=== PATIENT | female | born 1995 | race Caucasian/White ===

== ENCOUNTER 2019-05-21 15:38 | Emergency (ER) | payer MEDICAID ==
[2019-05-21 16:20] VITALS: BP 139/75; PULSE 91
--- NOTE | 2019-05-21 17:16 | EDM.PDOC ---
ED HPI GENERAL MEDICAL PROBLEM - General Chief Complaint: Skin Complaint Stated Complaint: L INDEX FINGER. POSSIBLE INFECTION Time Seen by Provider: 05/21/19 17:11 Source of Information: Reports: Patient History Limitations: Reports: No Limitations - History of Present Illness INITIAL COMMENTS - FREE TEXT/NARRATIVE: Patient is a 24-year-old female who is complaining of having pain and swelling to the distal tip of her index finger on the left hand. This is been going on for several days. She states there is been no injury or foreign body to the area. She has had a similar problem years ago on her right thumb. She does not work in a nursery or with farm animals. She denies any lymphangitis. Using hot compresses on this. Attempted to apply pressure to see if she can get a discharge from the finger. She has been unsuccessful with this. Duration: Week(s): (1) Location: Reports: Upper Extremity, Left Quality: Reports: Throbbing Severity: Mild Improves with: Reports: None Worsens with: Reports: None Associated Symptoms: Reports: No Other Symptoms left first finger Pain Score (Numeric/FACES): 8 - Related Data Allergies Allergy/AdvReac Type Severity Reaction Status Date / Time No Known Allergies Allergy Verified 05/21/19 16:20 Home Meds: Home Meds Sertraline [Zoloft] 50 mg PO DAILY 05/21/19 [History] Past Medical History - Past Health History Medical/Surgical History: Denies Medical/Surgical History Social & Family History - Family History Family Medical History: Noncontributory - Tobacco Use Smoking Status *Q: Current Every Day Smoker Years of Tobacco use: 11 Packs/Tins Daily: 0.5 - Recreational Drug Use Recreational Drug Use: No ED ROS GENERAL - Review of Systems Review Of Systems: Comprehensive ROS is negative, except as noted in HPI. ED EXAM, SKIN/RASH Exam: See Below Exam Limited By: No Limitations General Appearance: Alert, No Apparent Distress Head: Atraumatic, Normocephalic Neck: Normal Inspection Respiratory/Chest: No Respiratory Distress Neurological: Alert, Oriented Psychiatric: Normal Affect Skin: Warm, Dry, Erythema, Increased Warmth Location, Skin: Upper Extremity, Left Associated features: Warmth, Tenderness, Swelling Lymphatic: No Adenopathy Course - Vital Signs Last Recorded V/S: Last Vital Signs Temp 37.5 C 05/21/19 16:17 Pulse 91 05/21/19 16:17 Resp 18 05/21/19 16:17 BP 139/75 05/21/19 16:17 Pulse Ox 98 05/21/19 16:17 - Re-Assessments/Exams Free Text/Narrative Re-Assessment/Exam: 05/21/19 17:17 Patient's left index finger looks like it could be an early felon. Swelling is mild I will treat with antibiotic coverage and warm compresses. I will start her on clindamycin. Patient's instructed to return to ER if worse or not improving at that time we will most likely drain it with scalpel incision. Normal and ibuprofen as needed for pain. Departure - Departure Time of Disposition: 17:18 Disposition: Home, Self-Care 01 Clinical Impression: Felon of finger - Discharge Information Instructions: Cellulitis, Adult, [id number] Referrals: PCP,None [Primary Care Provider] - Additional Instructions: Clindamycin as prescribed. Tylenol and ibuprofen as needed. Warm soaks 4 times a day. Return to ER if not improving or worse. See PCP if not improving. The following information is given to patients seen in the emergency department who are being discharged to home. This information is to outline your options for follow-up care. We provide all patients seen in our emergency department with a follow-up referral. The need for follow-up, as well as the timing and circumstances, are variable depending upon the specifics of your emergency department visit. If you don't have a primary care physician on staff, we will provide you with a referral. We always advise you to contact your personal physician following an emergency department visit to inform them of the circumstance of the visit and for follow-up with them and/or the need for any referrals to a consulting specialist. The emergency department will also refer you to a specialist when appropriate. This referral assures that you have the opportunity for follow-up care with a specialist. All of these measure are taken in an effort to provide you with optimal care, which includes your follow-up. Under all circumstances we always encourage you to contact your private physician who remains a resource for coordinating your care. When calling for follow-up care, please make the office aware that this follow-up is from your recent emergency room visit. If for any reason you are refused follow-up, please contact the [facility] Emergency Department at and asked to speak to the emergency department charge nurse. Sepsis Event Note - Evaluation Sepsis Screening Result: No Definite Risk - Focused Exam Vital Signs: Vital Signs Temp Pulse Resp BP Pulse Ox 05/21/19 16:17 37.5 C 91 18 139/75 98 Date Exam was Performed: 05/21/19 Time Exam was Performed: 17:11
== END 2019-05-21 17:25 | disposition home or self-care (01) ==
LOC: MW.ED 15:38
DX: L03.012 Cellulitis of left finger (principal); F17.210 Nicotine dependence, cigarettes, uncomplicated
CPT/HCPCS: 99282; 99283

== ENCOUNTER 2019-06-17 07:16 | Emergency (ER) | payer OTHER ==
--- NOTE | 2019-06-17 07:21 | EDM.PDOC ---
<Jennifer Buckley - Last Filed: 06/17/19 10:11> ED HPI GENERAL MEDICAL PROBLEM - General Chief Complaint: Respiratory Problem Stated Complaint: SHORTNESS OF BREATH Time Seen by Provider: 06/17/19 07:19 Source of Information: Reports: Patient History Limitations: Reports: No Limitations - History of Present Illness INITIAL COMMENTS - FREE TEXT/NARRATIVE: HISTORY OF PRESENT ILLNESS: Patient is a 24-year-old female who reports 3-day history of tactile fever, nonproductive cough, generalized body aches and nasal congestion. She denies any neck stiffness or rash. No chest pain. Has occasional wheezing and mild dyspnea. Has a history of smoking but denies any history of asthma. No hemoptysis. No abdominal pain, vomiting or diarrhea. No urinary symptoms. Has tried using a family members inhaler with some relief. REVIEW OF SYSTEMS: Other than the symptoms associated with the present events, the following is reported with regard to recent health: General: (+) fever. HENT: (+) congestion. Respiratory: (+) cough. Cardiovascular: (-) chest pain. GI: (-) abdominal pain. : (-) urinary complaints. Musculoskeletal: (+) generalized myalgias Endocrine: (+) generalized fatigue Neurological: (-) localized weakness. Skin: (-) rash PAST MEDICAL HISTORY: reviewed as per nursing notes SOCIAL HISTORY: reviewed as per nursing notes, MEDICATIONS: Per nurse's note ALLERGIES: Per nurse's note, reviewed by me PHYSICAL EXAMINATION: GENERALIZED APPEARANCE: well developed, well nourished in mild distress VITAL SIGNS: Per nurse's note, reviewed by me SKIN: Warm, dry; (-) cyanosis; (-) rash. HEAD: (-) scalp swelling, (-) tenderness. EYES: (-) conjunctival pallor, (-) scleral icterus. ENMT: (-) stridor; mucous membranes moist. NECK: (-) tenderness, (-) stiffness, (-) meningismus CHEST AND RESPIRATORY: (-) rales, (-) rhonchi, (+)bilateral expiratory wheezes ; breath sounds equal bilaterally. occasional dry cough HEART AND CARDIOVASCULAR: (-) irregularity; (-) murmur, (-) gallop. ABDOMEN AND GI: Soft; (-) tenderness, (-) guarding, (-) rebound, (-) palpable masses, EXTREMITIES: (-) deformity, (-) edema. NEURO AND PSYCH: Alert. Cranial nerves grossly intact; strength symmetric. gait steady DIAGNOSTICS: CXR: as per radiologist report, reviewed by myself Influenza ordered EMERGENCY DEPARTMENT COURSE AND TREATMENT: Patient's condition improved during Emergency Department evaluation. Based on my history, physical exam, and diagnostic evaluation, the patient has symptoms consistent with an acute bronchitis.Given duoneb for wheezing. On re-exam there was a normal respiratory pattern and lung gomes were clear on repeat auscultation. The patient appeared to be in no distress, appeared well-hydrated and was ambulating in the ED without difficulty. Subjectively, the patient feels better and is requesting discharge. Discharge precautions were given with instructions to return if difficulty breathing, not tolerating oral food or fluids, any respiratory distress, or new symptoms. I encouraged follow-up with the primary care physician or return here for repeat exam in 24-48 hours PLAN AND FOLLOW-UP: Patient received written and verbal instructions regarding this condition. Return to ED immediately with any new or worsening symptoms. Follow up to be arranged by patient with pcp in 1-2 days for further evaluation. Given discharge precautions. Patient expressed verbal understanding. - Related Data Allergies Allergy/AdvReac Type Severity Reaction Status Date / Time No Known Allergies Allergy Verified 06/17/19 07:19 Home Meds: Home Meds Sertraline [Zoloft] 50 mg PO DAILY 05/21/19 [History] Albuterol Sulfate [Albuterol Sulfate Hfa] 18 gm IH Q6HR PRN #1 [email or web address] [Rx] ED ROS GENERAL - Review of Systems Review Of Systems: See Below (see dictation) ED EXAM, GENERAL - Physical Exam Exam: See Below (see dictation) Course - Vital Signs Last Recorded V/S: Last Vital Signs Temp 97.4 F 06/17/19 07:19 Pulse 97 06/17/19 09:25 Resp 18 06/17/19 09:25 BP 114/69 06/17/19 09:25 Pulse Ox 98 06/17/19 09:25 - Orders/Labs/Meds Labs: Laboratory Tests 06/17/19 Range/Units 08:03 Urine HCG, Qual NEGATIVE (NEGATIVE) Meds: Medications Discontinued Medications Generic Name Dose Route Start Last Admin Trade Name Freq PRN Reason Stop Dose Admin Albuterol/Ipratropium 3 ml 06/17/19 07:36 06/17/19 07:47 Duoneb 3.0-0.5 Mg/3 Ml NEB 06/17/19 07:37 3 ml ONETIME ONE Administration Departure - Departure Time of Disposition: 09:30 Disposition: Home, Self-Care 01 Condition: Good Clinical Impression: Bronchitis, Wheezing - Discharge Information *PRESCRIPTION DRUG MONITORING PROGRAM REVIEWED*: Not Applicable *COPY OF PRESCRIPTION DRUG MONITORING REPORT IN PATIENT MCKINLEY: Not Applicable Prescriptions: Albuterol Sulfate [Albuterol Sulfate Hfa] 18 gm IH Q6HR PRN #1 [email or web address] PRN Reason: wheezing/shortness of breath Instructions: Acute Bronchitis, Adult, [id number] Referrals: Erica Elias [Ordering Only Provider] - Forms: ED Department Discharge Additional Instructions: The following information is given to patients seen in the emergency department who are being discharged to home. This information is to outline your options for follow-up care. We provide all patients seen in our emergency department with a follow-up referral. The need for follow-up, as well as the timing and circumstances, are variable depending upon the specifics of your emergency department visit. If you don't have a primary care physician on staff, we will provide you with a referral. We always advise you to contact your personal physician following an emergency department visit to inform them of the circumstance of the visit and for follow-up with them and/or the need for any referrals to a consulting specialist. The emergency department will also refer you to a specialist when appropriate. This referral assures that you have the opportunity for follow-up care with a specialist. All of these measure are taken in an effort to provide you with optimal care, which includes your follow-up. Under all circumstances we always encourage you to contact your private physician who remains a resource for coordinating your care. When calling for follow-up care, please make the office aware that this follow-up is from your recent emergency room visit. If for any reason you are refused follow-up, please contact the [facility] Emergency Department at and asked to speak to the emergency department charge nurse. Sepsis Event Note - Focused Exam Date Exam was Performed: 06/17/19 Time Exam was Performed: 10:11 <Pk Ayers - Last Filed: 06/24/19 08:20> ED HPI GENERAL MEDICAL PROBLEM - General Source of Information: Reports: Patient - History of Present Illness INITIAL COMMENTS - FREE TEXT/NARRATIVE: Enter chart and error disregard my dictation at this point. Past Medical History - Past Health History Medical/Surgical History: Denies Medical/Surgical History Social & Family History - Family History Family Medical History: Noncontributory Course - Vital Signs Last Recorded V/S: Last Vital Signs Temp 97.4 F 06/17/19 07:19 Pulse 97 06/17/19 09:25 Resp 18 06/17/19 09:25 BP 114/69 06/17/19 09:25 Pulse Ox 98 06/17/19 09:25 - Orders/Labs/Meds Labs: Laboratory Tests 06/17/19 Range/Units 08:03 Urine HCG, Qual NEGATIVE (NEGATIVE) Meds: Medications Discontinued Medications Generic Name Dose Route Start Last Admin Trade Name Freq PRN Reason Stop Dose Admin Albuterol/Ipratropium 3 ml 06/17/19 07:36 06/17/19 07:47 Duoneb 3.0-0.5 Mg/3 Ml NEB 06/17/19 07:37 3 ml ONETIME ONE Administration Sepsis Event Note - Focused Exam Date Exam was Performed: 06/24/19 Time Exam was Performed: 08:19
[2019-06-17] MEDS ORDERED: Albuterol/Ipratropium 3.0-0.5 MG/3 ML Neb Soln NEB ONE (07:36)
--- NOTE | 2019-06-17 08:59 | CR ---
Chest: 2 views of the chest were obtained. Comparison: No previous chest x-ray is available. Heart size and mediastinum are normal. Lungs are clear. Bony structures appear within normal limits for the patient's age. Incidental note of several old right lower rib fractures which appears healed. Impression: 1. Nothing acute is seen on 2 view chest x-ray. Diagnostic code #2 This report was dictated in [place] Standard Time
[2019-06-17 09:32] VITALS: BP 114/69; PULSE 97
== END 2019-06-17 09:30 | disposition home or self-care (01) ==
LOC: MW.ED 07:16
DX: J40 Bronchitis, not specified as acute or chronic (principal)
CPT/HCPCS: 71046; 71046-26; 81025; 87804; 94640; 99283; 99285-25; J7620-GY

== ENCOUNTER 2019-08-11 08:28 | Emergency (ER) | payer BC, OTHER ==
[2019-08-11 08:54] VITALS: BP 118/67; PULSE 71
--- NOTE | 2019-08-11 10:11 | EDM.PDOC ---
ED HPI GENERAL MEDICAL PROBLEM - General Chief Complaint: Respiratory Problem Stated Complaint: SORE THROAT, COUGH Time Seen by Provider: 08/11/19 10:07 Source of Information: Reports: Patient History Limitations: Reports: No Limitations - History of Present Illness INITIAL COMMENTS - FREE TEXT/NARRATIVE: HISTORY AND PHYSICAL: History of present illness: Patient is a 24-year-old female who presents to the emergency room with complaints of sinus pressure, nasal drainage, sore throat and dry nonproductive cough. Patient states she has had sinus symptoms for approximately 1 week. Yesterday she had an infrequent dry nonproductive cough. People at work were concerned that she could "get everyone sick" and requested she come to the emergency room for evaluation. She denies any recent travel. Denies being exposed to anyone who is been recently sick. She has not had any fevers, chills , GI or symptoms. Review of systems: As per history of present illness and below otherwise all systems reviewed and negative. Past medical history: As per history of present illness and as reviewed below otherwise noncontributory. Surgical history: As per history of present illness and as reviewed below otherwise noncontributory. Social history: See social history for further information Family history: As per history of present illness and as reviewed below otherwise noncontributory. Physical exam: General: Well-developed and well-nourished 24-year-old female. Alert and oriented. Nontoxic-appearing and in no acute distress. HEENT: Atraumatic, normocephalic, pupils equal and reactive bilaterally, negative for conjunctival pallor or scleral icterus, mucous membranes moist, maxillary sinus tenderness bilaterally, TMs normal bilaterally, throat erythematous with out exudate or soft tissue swelling, neck supple, nontender, trachea midline. No drooling or trismus noted. No meningeal signs. No hot potato voice noted. Lungs: Clear to auscultation, breath sounds equal bilaterally, chest nontender. Heart: S1S2, regular rate and rhythm without overt murmur Abdomen: Soft, nondistended, nontender. Skin: Intact, warm, dry. No lesions or rashes noted. Extremities: Atraumatic, moves all extremities per self without difficulty or deficits, negative for cords or calf pain. Neurovascular unremarkable. Neuro: Awake, alert, oriented. Cranial nerves II through XII unremarkable. Cerebellum unremarkable. Motor and sensory unremarkable throughout. Exam nonfocal. Notes: My physical exam is within normal limits. Her vital signs are stable. She states that she is frustrated that she have to come here because work was making her "paranoid I was going to get everyone sick". She states that she would like a work note for her to not be able to return to work until "all of this is over" (COVID-19 pandemic). We will treat the sinusitis with Augmentin. Her risk factors for cough and 19 are low and will not swab her at this time. I did encourage her to continue to monitor her symptoms and if they worsen she should return to the emergency room and/or follow-up with her primary care provider. Supportive care measures were reviewed and discussed. Voices understanding and is agreeable to plan of care. Denies any further questions or concerns at this time. Diagnostics: None Therapeutics: None Prescription: Augmentin Impression: Sinusitis Plan: 1. Take your medication as directed. Good handwashing and contact precautions as we discussed. 2. Warm Salt water gargles (rinse and spit) 3-4 x daily. Please get a new tooth brush after completion of your medication 3. Tylenol and or ibuprofen as needed for pain management. 4. Follow-up with your primary care provider in the next 1-2 days. Return to the ED as needed and as discussed. Definitive disposition and diagnosis as appropriate pending reevaluation and review of above. - Related Data Allergies Allergy/AdvReac Type Severity Reaction Status Date / Time No Known Allergies Allergy Verified 08/11/19 08:54 Home Meds: Home Meds Sertraline [Zoloft] 50 mg PO DAILY 05/21/19 [History] Albuterol Sulfate [Albuterol Sulfate Hfa] 18 gm IH Q6HR PRN #1 [email or web address] [Rx] Amoxicillin/Clavulanate K [Augmentin 875-125 MG] 1 tab PO BID 10 Days #20 tablet 08/11/19 [Rx] Past Medical History - Past Health History Medical/Surgical History: Denies Medical/Surgical History Psychiatric History: Reports: Anxiety, Depression - Infectious Disease History Infectious Disease History: Reports: Chicken Pox Social & Family History - Family History Family Medical History: Noncontributory - Tobacco Use Smoking Status *Q: Never Smoker - Recreational Drug Use Recreational Drug Use: No ED ROS GENERAL - Review of Systems Review Of Systems: Comprehensive ROS is negative, except as noted in HPI. ED EXAM, GENERAL - Physical Exam Exam: See Below (See dictation) Course - Vital Signs Last Recorded V/S: Last Vital Signs Temp 96.8 F L 08/11/19 08:51 Pulse 71 08/11/19 08:51 Resp 18 08/11/19 08:51 BP 118/67 08/11/19 08:51 Pulse Ox 99 08/11/19 08:51 Departure - Departure Time of Disposition: 10:11 Disposition: Home, Self-Care 01 Clinical Impression: Sinusitis - Discharge Information Prescriptions: Amoxicillin/Clavulanate K [Augmentin 875-125 MG] 1 tab PO BID 10 Days #20 tablet Instructions: Sinusitis, Adult, [id number] Referrals: Michael Henson MD [Primary Care Provider] - Forms: ED Department Discharge Additional Instructions: The following information is given to patients seen in the emergency department who are being discharged to home. This information is to outline your options for follow-up care. We provide all patients seen in our emergency department with a follow-up referral. The need for follow-up, as well as the timing and circumstances, are variable depending upon the specifics of your emergency department visit. If you don't have a primary care physician on staff, we will provide you with a referral. We always advise you to contact your personal physician following an emergency department visit to inform them of the circumstance of the visit and for follow-up with them and/or the need for any referrals to a consulting specialist. The emergency department will also refer you to a specialist when appropriate. This referral assures that you have the opportunity for follow-up care with a specialist. All of these measure are taken in an effort to provide you with optimal care, which includes your follow-up. Under all circumstances we always encourage you to contact your private physician who remains a resource for coordinating your care. When calling for follow-up care, please make the office aware that this follow-up is from your recent emergency room visit. If for any reason you are refused follow-up, please contact the [facility] Emergency Department at and asked to speak to the emergency department charge nurse. [facility] [address] [place] [address] [facility] [address] [place] [address] 1. Take your medication as directed. Good handwashing and contact precautions as we discussed. 2. Warm Salt water gargles (rinse and spit) 3-4 x daily. Please get a new tooth brush after completion of your medication 3. Tylenol and or ibuprofen as needed for pain management. 4. Follow-up with your primary care provider in the next 1-2 days. Return to the ED as needed and as discussed. Sepsis Event Note - Evaluation Sepsis Screening Result: No Definite Risk - Focused Exam Vital Signs: Vital Signs Temp Pulse Resp BP Pulse Ox 08/11/19 08:51 96.8 F L 71 18 118/67 99 Date Exam was Performed: 08/11/19 Time Exam was Performed: 11:03
== END 2019-08-11 10:27 | disposition home or self-care (01) ==
LOC: MW.ED 08:28
DX: J32.9 Chronic sinusitis, unspecified (principal)
CPT/HCPCS: 99283

== ENCOUNTER 2019-11-22 13:54 | Emergency (ER) | payer BC, SELFPAY ==
--- NOTE | 2019-11-22 14:25 | EDM.PDOC ---
ED HPI GENERAL MEDICAL PROBLEM - General Chief Complaint: Upper Extremity Injury/Pain Stated Complaint: RIGHT HAND POSS BROKEN Time Seen by Provider: 11/22/19 14:15 Source of Information: Reports: Patient History Limitations: Reports: No Limitations - History of Present Illness INITIAL COMMENTS - FREE TEXT/NARRATIVE: Presents reporting right hand injury. The patient states that 48 hours ago she "lost it" and hit a wall with her closed fist. At that time she has had swelling, bruising, tenderness and pain in her right dorsal hand which limits the range of motion of her fingers. She states she has been off of her anxiety depression and PTSD medications as she is unable to afford them. Thus, she is having some trouble with anger management. She is otherwise healthy and has an IUD for control. right hand Pain Score (Numeric/FACES): 9 - Related Data Allergies Allergy/AdvReac Type Severity Reaction Status Date / Time No Known Allergies Allergy Verified 11/22/19 14:04 Home Meds: Home Meds Sertraline [Zoloft] 50 mg PO DAILY 05/21/19 [History] Albuterol Sulfate [Albuterol Sulfate Hfa] 18 gm IH Q6HR PRN #1 hfa.aer.ad 06/17/19 [Rx] Desvenlafaxine Succinate [Pristiq] 1 tab PO DAILY 11/22/19 [History] Diclofenac Sodium [Voltaren] 75 mg PO BIDMEALS PRN #20 tab.ec 11/22/19 [Rx] Prazosin [Minpress] 1 tab PO DAILY 11/22/19 [History] Past Medical History - Past Health History Medical/Surgical History: Denies Medical/Surgical History HEENT History: Reports: None Cardiovascular History: Reports: None Gastrointestinal History: Reports: None Genitourinary History: Reports: None 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: Reports: 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 Musculoskeletal History: Reports: None Neurological History: Reports: None Psychiatric History: Reports: Anxiety, Depression, PTSD Endocrine/Metabolic History: Reports: None Hematologic History: Reports: None Immunologic History: Reports: None Oncologic (Cancer) History: Reports: None Dermatologic History: Reports: None - Infectious Disease History Infectious Disease History: Reports: Chicken Pox - Past Surgical History Head Surgeries/Procedures: Reports: None HEENT Surgical History: Reports: None Cardiovascular Surgical History: Reports: None Respiratory Surgical History: Reports: None GI Surgical History: Reports: None Female Surgical History: Reports: None Endocrine Surgical History: Reports: None Neurological Surgical History: Reports: None Musculoskeletal Surgical History: Reports: None Oncologic Surgical History: Reports: None Dermatological Surgical History: Reports: None Social & Family History - Family History Family Medical History: Noncontributory - Tobacco Use Smoking Status *Q: Current Every Day Smoker Years of Tobacco use: 11 Packs/Tins Daily: 0.5 - Caffeine Use Caffeine Use: Reports: Coffee, Energy Drinks, Soda, Tea - Recreational Drug Use Recreational Drug Use: No Review of Systems - Review of Systems Review Of Systems: Comprehensive ROS is negative, except as noted in HPI. ED EXAM, GENERAL - Physical Exam Exam: See Below Exam Limited By: No Limitations General Appearance: Alert, No Apparent Distress Ears: Normal External Exam Nose: Normal Inspection Throat/Mouth: Normal Inspection Head: Atraumatic, Normocephalic Neck: Normal Inspection Respiratory/Chest: No Respiratory Distress, Lungs Clear, Normal Breath Sounds Cardiovascular: Normal Peripheral Pulses, Regular Rate, Rhythm, No Murmur Back Exam: Normal Inspection Extremities: Other (Dorsal hand swelling, erythema over the third fourth and fifth MP joints. Palm of hand ecchymotic with multicolors. Able to move all digits but limited by pain. CMS intact distally. Radial pulse strong.) Neurological: Alert, Oriented Psychiatric: Normal Affect, Normal Mood Skin Exam: Warm, Dry, Intact, Normal Color, No Rash Lymphatic: No Adenopathy ED TRAUMA EXTREMITY PROCEDURES - Splinting Right Upper Extremity Pre-Procedure NV Status: Normal Post-Procedure NV Status: Normal Splint Material: Fiberglass Splint Design: Volar (Gutter) Applied & Form Fitted By: Nurse Complications: No Course - Vital Signs Last Recorded V/S: Last Vital Signs Temp 36.2 C 11/22/19 14:05 Pulse 93 11/22/19 14:05 Resp 17 11/22/19 14:05 BP 123/73 11/22/19 14:05 Pulse Ox 97 11/22/19 14:05 - Orders/Labs/Meds Orders: Active Orders 24 hr Category Date Time Status Hand Comp Min 3V Lt [CR] Stat Exams 11/22/19 14:19 Ordered Departure - Departure Time of Disposition: 15:28 Disposition: Home, Self-Care 01 Clinical Impression: Fracture of metacarpal bone Qualifiers: Encounter type: initial encounter Metacarpal bone: fifth Fracture type: closed Metacarpal location: shaft Fracture alignment: displaced Laterality: right Qualified Code(s): S62.326A - Displaced fracture of shaft of fifth metacarpal bone, right hand, initial encounter for closed fracture - Discharge Information Instructions: Cast or Splint Care, Adult Referrals: Michael Henson MD [Primary Care Provider] - Madelyn Garcia [Ordering Only Provider] - Dejuan Hooker MD [Ordering Only Provider] - Forms: ED Department Discharge Additional Instructions: The following information is given to patients seen in the emergency department who are being discharged to home. This information is to outline your options for follow-up care. We provide all patients seen in our emergency department with a follow-up referral. The need for follow-up, as well as the timing and circumstances, are variable depending upon the specifics of your emergency department visit. If you don't have a primary care physician on staff, we will provide you with a referral. We always advise you to contact your personal physician following an emergency department visit to inform them of the circumstance of the visit and for follow-up with them and/or the need for any referrals to a consulting specialist. The emergency department will also refer you to a specialist when appropriate. This referral assures that you have the opportunity for follow-up care with a specialist. All of these measure are taken in an effort to provide you with optimal care, which includes your follow-up. Under all circumstances we always encourage you to contact your private physician who remains a resource for coordinating your care. When calling for follow-up care, please make the office aware that this follow-up is from your recent emergency room visit. If for any reason you are refused follow-up, please contact the [facility] Emergency Department at and asked to speak to the emergency department charge nurse. 1. Elevate right hand. 2. Wear splint. Loosen LANI for cool, pale, painful fingers. 3. Follow-up with Dr. Garcia or Dr. Hooker, [facility] Dept of Hand and Wrist surgery. They will call you at [phone] with an appointment time. 4. Diclofenac twice daily as needed for pain. Sepsis Event Note (ED) - Evaluation Sepsis Screening Result: No Definite Risk - Focused Exam Vital Signs: Vital Signs Temp Pulse Resp BP Pulse Ox 11/22/19 14:05 36.2 C 93 17 123/73 97 - My Orders Last 24 Hours: My Active Orders 11/22/19 14:19 Hand Comp Min 3V Lt [CR] Stat - Assessment/Plan Last 24 Hours: My Active Orders 11/22/19 14:19 Hand Comp Min 3V Lt [CR] Stat
[2019-11-22] MEDS ORDERED: Ketorolac 60 MG/2 ML SDV IM ONE (15:28)
[2019-11-22 16:22] VITALS: BP 122/74; PULSE 84
--- NOTE | 2019-11-23 10:01 | CR ---
Left hand: 3 views left hand were obtained. Comparison: No previous study. Fracture is identified within the distal shaft of the right 5th metacarpal. [place] posterior angulation is seen as well as approximately one half shaft with displacement. Soft tissue swelling is identified. No additional fracture or other bony abnormality is appreciated. Impression: 1. Distal 5th metacarpal fracture with soft tissue swelling. Diagnostic code #3 This report was dictated in MDT
== END 2019-11-22 16:00 | disposition home or self-care (01) ==
LOC: MW.ED 13:54
DX: S62.326A Displaced fracture of shaft of fifth metacarpal bone, right hand, initial encounter for closed fracture (principal); F41.9 Anxiety disorder, unspecified; F32.9 Major depressive disorder, single episode, unspecified; F17.210 Nicotine dependence, cigarettes, uncomplicated; W22.8XXA Striking against or struck by other objects, initial encounter
CPT/HCPCS: 29125; 73130; 96372; 99283; J1885; 99282

== ENCOUNTER 2020-02-27 03:45 | Emergency (ER) | payer BC, OTHER ==
[2020-02-27] MEDS ORDERED: Albuterol/Ipratropium 3.0-0.5 MG/3 ML Neb Soln NEB ONE (04:19)
[2020-02-27] MEDS ORDERED: predniSONE 20 MG Tab PO ONE (04:19)
--- NOTE | 2020-02-27 04:38 | EDM.PDOC ---
ED HPI GENERAL MEDICAL PROBLEM - General Chief Complaint: Respiratory Problem Stated Complaint: SOB, POSSIBLE COVID EXPOSURE Time Seen by Provider: 02/27/20 04:12 - History of Present Illness INITIAL COMMENTS - FREE TEXT/NARRATIVE: HISTORY AND PHYSICAL: History of present illness: This is a 25-year-old female with no significant history for hypertension, diabetes, liver, lung, kidney problems who presents ER today secondary to shortness of breath that started earlier this evening. Patient reports that she had a coronavirus test on Thursday but does not know the results as of yet. Patient reports that she had a coronavirus test secondary to her boss and coworkers being tested positive for amezcua virus. Patient denies any recent fevers, shakes, chills, nausea, vomiting, diarrhea. Patient reports that she does have shortness of breath and occasional cough and rhinorrhea. Patient reports that she has had rhinorrhea for several months which she believes is related to allergies to her cats. Patient denies any chest pain, abdominal pain, back pain, lower extremity edema, calf tenderness. Patient denies any hemoptysis. Patient reports nonproductive cough. Patient denies any history of hypertension, diabetes, liver, lung, kidney problems. Patient denies any prior abdominal or chest surgeries. Patient has no known drug allergies. Patient reports occasional rare tobacco and alcohol use. Patient denies drug use Review of systems: As per history of present illness and below otherwise all systems reviewed and negative. Past medical history: As per history of present illness and as reviewed below otherwise noncontributory. Surgical history: As per history of present illness and as reviewed below otherwise noncontributory. Social history: No reported history of drug or alcohol abuse. Family history: As per history of present illness and as reviewed below otherwise noncontributory. Physical exam: Constitutional: Patient is oriented to person, place, and time. Appears well- developed and well-nourished. No distress. HEENT: Moist mucous membranes Head: Normocephalic and atraumatic Eyes: Right eye exhibits no discharge. Left eye exhibits no discharge. No scleral icterus Neck: Normal range of motion. No tracheal deviation present. Cardiovascular: Normal rate and regular rhythm. Pulmonary: Effort normal, no respiratory distress. Occasional end expiratory wheezing Abdominal: No distention Musculoskeletal: Normal range of motion Neurologic: Alert and oriented to person, place and time. Skin: [place], warm and dry. Psychiatric: Normal mood and affect. Behavior is normal. Judgment and thought content normal. Nursing note and vital signs have been reviewed Diagnostics: Chest x-ray: Coronavirus test: Therapeutics: Albuterol/Atrovent nebulized: Prednisone 50 mg p.o. Assessment and plan: This is a 25-year-old female who presents ER today secondary to shortness of breath. Patient's pulse ox is 93 to 95% on room air. Patient will have a chest x-ray and coronavirus test ordered. Patient be given albuterol Atrovent nebulized treatment as well as prednisone secondary to the wheezing. Patient will be reassessed. Chest Xray: Normal cardiac silhouette No infiltrates or effusions identified. No PTX No evidence of acute bony fracture. As interpreted by ER MD: [place] Coronavirus test negative Patient feels much improved and is been resting and sleeping comfortably after the DuoNeb. Patient be discharged home with albuterol MDI and prednisone. Reassessment at the time of disposition demonstrates that the patient is in no acute distress. The patient has remained stable throughout the entire ED visit and is without objective evidence for acute process requiring urgent intervention or hospitalization. The patient is stable for discharge, counseling is provided as documented above, discussed symptomatic treatment and specific conditions for return. I have spoken with the patient/caregiver and discussed todays findings, in addition to providing specific details for the plan of care. Questions are answered and there is agreement with the plan. Definitive disposition and diagnosis as appropriate pending reevaluation and review of above. 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: Reports: Oxygen - Related Data Allergies Allergy/AdvReac Type Severity Reaction Status Date / Time No Known Allergies Allergy Verified 02/27/20 03:50 Home Meds: Home Meds Sertraline [Zoloft] 50 mg PO DAILY 05/21/19 [History] Albuterol Sulfate [Albuterol Sulfate Hfa] 18 gm IH Q6HR PRN #1 hfa.aer.ad 06/17/19 [Rx] Desvenlafaxine Succinate [Pristiq] 1 tab PO DAILY 11/22/19 [History] Diclofenac Sodium [Voltaren] 75 mg PO BIDMEALS PRN #20 tab.ec 11/22/19 [Rx] Prazosin [Minpress] 1 tab PO DAILY 11/22/19 [History] Albuterol Sulfate [Albuterol Sulfate Hfa] 8.5 gm IH QID PRN #1 hfa.aer.ad 02/27/20 [Rx] predniSONE [Prednisone] 50 mg PO DAILY #5 tablet 02/27/20 [Rx] Past Medical History - Past Health History Medical/Surgical History: Denies Medical/Surgical History HEENT History: Reports: Sinusitis Cardiovascular History: Reports: None Respiratory History: Reports: Bronchitis, Recurrent Gastrointestinal History: Reports: None Genitourinary History: Reports: None 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: Musculoskeletal History: Reports: Other (See Below) Other Musculoskeletal History: metacarpal fx Neurological History: Reports: None Psychiatric History: Reports: Anxiety, Depression, PTSD Endocrine/Metabolic History: Reports: None Hematologic History: Reports: None Immunologic History: Reports: None Oncologic (Cancer) History: Reports: None Dermatologic History: Reports: None - Infectious Disease History Infectious Disease History: Reports: Chicken Pox - Past Surgical History Head Surgeries/Procedures: Reports: None HEENT Surgical History: Reports: None Cardiovascular Surgical History: Reports: None Respiratory Surgical History: Reports: None GI Surgical History: Reports: None Female Surgical History: Reports: None Endocrine Surgical History: Reports: None Neurological Surgical History: Reports: None Musculoskeletal Surgical History: Reports: None Oncologic Surgical History: Reports: None Dermatological Surgical History: Reports: None Social & Family History - Family History Family Medical History: Noncontributory - Caffeine Use Caffeine Use: Reports: Coffee, Energy Drinks, Soda, Tea - Recreational Drug Use Recreational Drug Use: Yes Drug Use in Last 12 Months: No ED ROS GENERAL - Review of Systems Review Of Systems: See Below ED EXAM, GENERAL - Physical Exam Exam: See Below Course - Vital Signs Last Recorded V/S: Last Vital Signs Temp 97.6 F 02/27/20 03:47 Pulse 106 H 02/27/20 04:15 Resp 22 H 02/27/20 04:15 BP 130/96 H 02/27/20 04:15 Pulse Ox 97 02/27/20 04:15 - Orders/Labs/Meds Orders: Active Orders 24 hr Category Date Time Status CORONAVIRUS COVID-19 PCR PH[facility] Stat Lab 02/27/20 04:49 Received Labs: Laboratory Tests 02/27/20 02/27/20 Range/Units 04:38 04:40 Urine HCG, Qual NEGATIVE (NEGATIVE) SARS CoV-2 RNA Rapid MYLENE NEGATIVE (NEGATIVE) Meds: Medications Discontinued Medications Generic Name Dose Route Start Last Admin Trade Name Emma PRN Reason Stop Dose Admin Albuterol/Ipratropium 3 ml 02/27/20 04:19 02/27/20 04:30 Duoneb 3.0-0.5 Mg/3 Ml NEB 02/27/20 04:20 3 ml ONETIME ONE Administration Prednisone 50 mg 02/27/20 04:19 02/27/20 04:29 Prednisone PO 02/27/20 04:20 50 mg ONETIME ONE Administration Departure - Departure Time of Disposition: 05:46 Disposition: Home, Self-Care 01 Condition: Good Clinical Impression: Upper respiratory infection, Reactive airway disease - Discharge Information Instructions: Shortness of Breath, Adult, [id number], Viral Respiratory Infection, [id number], How to Use a Metered Dose Inhaler Forms: ED Department Discharge Additional Instructions: Your work-up in the emergency department today revealed a normal chest x-ray as well as a negative coronavirus test. You likely have a viral infection causing the wheezing. He will be given a prescription for prednisone to take daily and an albuterol inhaler to utilize up to 4 times a day as needed for wheezing. The following information is given to patients seen in the emergency department who are being discharged to home. This information is to outline your options for follow-up care. We provide all patients seen in our emergency department with a follow-up referral. The need for follow-up, as well as the timing and circumstances, are variable depending upon the specifics of your emergency department visit. If you don't have a primary care physician on staff, we will provide you with a referral. We always advise you to contact your personal physician following an emergency department visit to inform them of the circumstance of the visit and for follow-up with them and/or the need for any referrals to a consulting specialist. The emergency department will also refer you to a specialist when appropriate. This referral assures that you have the opportunity for follow-up care with a specialist. All of these measure are taken in an effort to provide you with optimal care, which includes your follow-up. Under all circumstances we always encourage you to contact your private physician who remains a resource for coordinating your care. When calling for follow-up care, please make the office aware that this follow-up is from your recent emergency room visit. If for any reason you are refused follow-up, please contact the [facility] Emergency Department at and asked to speak to the emergency department charge nurse. Sepsis Event Note (ED) - Evaluation Sepsis Screening Result: No Definite Risk - Focused Exam Vital Signs: Vital Signs Temp Pulse Resp BP Pulse Ox 02/27/20 04:15 106 H 22 H 130/96 H 97 02/27/20 03:47 97.6 F 114 H 28 H 155/94 H 94 L - My Orders Last 24 Hours: My Active Orders 02/27/20 04:49 CORONAVIRUS COVID-19 PCR [facility] Stat - Assessment/Plan Last 24 Hours: My Active Orders 02/27/20 04:49 CORONAVIRUS COVID-19 PCR [facility] Stat
--- NOTE | 2020-02-27 05:36 | CR ---
INDICATION: Shortness of breath TECHNIQUE: AP view of the chest COMPARISON: PA and lateral chest radiographs 06/17/2019 FINDINGS: The lungs are clear. There is no sizable pleural effusion or pneumothorax. The cardiomediastinal silhouette is normal. The visualized osseous structures are unremarkable. IMPRESSION: No acute intrathoracic process. Dictated by Derian Ferrera MD @ Feb 27 2020 5:33AM Signed by Dr. Derian Ferrera @ Feb 27 2020 5:34AM
[2020-02-27 06:52] VITALS: BP 138/69; PULSE 89
== END 2020-02-27 06:14 | disposition home or self-care (01) ==
LOC: MW.ED 03:45
DX: J06.9 Acute upper respiratory infection, unspecified (principal); J45.909 Unspecified asthma, uncomplicated; F41.9 Anxiety disorder, unspecified; F32.9 Major depressive disorder, single episode, unspecified; Z79.899 Other long term (current) drug therapy; Z20.828 Contact with and (suspected) exposure to other viral communicable diseases
CPT/HCPCS: 71045; 81025; 87635; 99285; A9270; 99283; J7620-GY; U0002

== ENCOUNTER 2020-09-10 16:38 | Emergency (ER) | payer BC ==
--- NOTE | 2020-09-10 17:31 | EDM.PDOC ---
ED HPI GENERAL MEDICAL PROBLEM - General Chief Complaint: Skin Complaint Stated Complaint: WHOLE BODY ITCH Time Seen by Provider: 09/10/20 17:04 Source of Information: Reports: Patient History Limitations: Reports: No Limitations - History of Present Illness INITIAL COMMENTS - FREE TEXT/NARRATIVE: HISTORY AND PHYSICAL: History of present illness: Patient is a 25-year-old female who presents to the emergency room with complaints of itching throughout her body over the past 7-10 days. She denies any new exposures, detergents, allergens or medications. She states approximately a month ago she was treated with Flagyl for bacterial vaginosis. States she has taken Flagyl before without any problems. Patient denies any fever, chills, headache, change in vision, syncope or near syncope. Denies any chest pain, back pain, shortness of breath or cough. Denies any sore throat, difficulty swallowing, nor other allergic type symptoms. Denies any abdominal pain, nausea, vomiting, diarrhea, constipation or dysuria. Denies any concern for or STIs. Stating she had a full [employer] work-up, hence being diagnosed with BV (states she gets this often). She has been eating and drinking appropriately. Review of systems: As per history of present illness and below otherwise all systems reviewed and negative. Past medical history: As per history of present illness and as reviewed below otherwise noncontributory. Surgical history: As per history of present illness and as reviewed below otherwise noncontributory. Social history: See social history for further information Family history: As per history of present illness and as reviewed below otherwise noncontributory. Physical exam: General: Well developed and well nourished 25-year-old female. Alert and orien tated x 3. Nontoxic in appearance and in no acute distress. Vital signs are stable and have been reviewed by me. Nursing notes were reviewed. HEENT: Atraumatic, normocephalic, pupils equal and reactive bilaterally, negative for conjunctival pallor or scleral icterus, mucous membranes moist, TMs normal bilaterally, throat clear, neck supple, nontender, trachea midline. No drooling or trismus noted. No meningeal signs. No hot potato voice noted. Lungs: Clear to auscultation bilaterally. No wheezes, rales, or rhonchi. Normal work of breathing, no accessory muscles used. Heart: S1S2, regular rate and rhythm without overt murmur, gallops, or rubs. No JVD. No peripheral edema Abdomen: Soft, nondistended, nontender. Negative for masses or costovertebral tenderness. Skin: Intact, warm, dry. No lesions or rashes noted. Hematologic: No petechiae or purpra. Mucosa appropriate color and normal nail bed color and refill. Extremities: Atraumatic, moves all extremities per self without difficulty or deficits. Neurovascular unremarkable. Neuro: Awake, alert, oriented. Cranial nerves II through XII unremarkable. Cerebellum unremarkable. Motor and sensory unremarkable throughout. Exam nonfocal. Psychiatric: Mood and affect are appropriate. Normal thought process. Answering questions appropriately. Notes: *This patient was seen and evaluated during the 2019 SARS-CoV-2 novel coronavirus pandemic period. Community viral transmission is ongoing at time of this encounter and the emergency department is operating under pandemic response procedures. Patient has no other concerns other than the itching throughout her body, stating she has not taken anything [id number] such as Benadryl as she has to work and does not want to be drowsy. She has not had any recent travel or rashes to her body. We discussed doing basic lab work versus treating her with antihistamine/steroid. She does prefer to have basic lab work done here. We will give Solu-Medrol and Benadryl while waiting for results. ER is busy, we do not have a pelvic bed available. She states she just had an [employer] work-up including STD testing, will have her self swab as she does have concern for yeast infection due to the itching sensation. Lab work is unremarkable. I have talked with the patient about today's findings, in addition to providing specific details for plan of care. Reassessment at the time of disposition demonstrates that the patient is in no acute distress. The patient is stable for discharge, counseling was provided and we discussed in great detail signs and symptoms that would prompt them to return to the Emergency Department. Medication, follow up and supportive care measures were reviewed and discussed. Voices understanding and is agreeable to plan of care. Denies any further questions or concerns at this time. Diagnostics: CBC, CMP, UA, [employer]: Benadryl, Solu-Medrol Prescription: Prednisone, Atarax Impression: Urticaria Plan: 1. You were evaluated today on an emergent basis. Your lab work is normal. Take the antihistamine and steroids as directed. Alveeno baths may be helpful or calamine lotion. 2. You can alternate Tylenol and ibuprofen as needed for pain and fever management. 3. We encourage you to follow up with your primary care provider and/or recommended specialist in the next few days for re-evaluation and further care/management. 4. If your symptoms should worsen, new symptoms develop or any of the signs and symptoms we discussed should arise please return to the emergency room or call 911 (if needed). Definitive disposition and diagnosis as appropriate pending reevaluation and review of above. - Related Data Allergies Allergy/AdvReac Type Severity Reaction Status Date / Time No Known Allergies Allergy Verified 09/10/20 17:27 Home Meds: Home Meds Albuterol Sulfate [Albuterol Sulfate Hfa] 8.5 gm IH QID PRN #1 hfa.aer.[id number] 02/27/20 [Rx] hydrOXYzine HCL [Atarax] 25 mg PO Q6H PRN #15 tab 09/10/20 [Rx] predniSONE [Prednisone] 40 mg PO DAILY 4 Days #8 tablet 09/10/20 [Rx] Past Medical History - Past Health History Medical/Surgical History: Denies Medical/Surgical History HEENT History: Reports: Sinusitis Cardiovascular History: Reports: None Respiratory History: Reports: Bronchitis, Recurrent Gastrointestinal History: Reports: None Genitourinary History: Reports: None [employer] History: Reports: Musculoskeletal History: Reports: Other (See Below) Other Musculoskeletal History: metacarpal fx Neurological History: Reports: None Psychiatric History: Reports: Anxiety, Depression, PTSD Endocrine/Metabolic History: Reports: None Hematologic History: Reports: None Immunologic History: Reports: None Oncologic (Cancer) History: Reports: None Dermatologic History: Reports: None - Infectious Disease History Infectious Disease History: Reports: Chicken Pox - Past Surgical History Head Surgeries/Procedures: Reports: None HEENT Surgical History: Reports: None Cardiovascular Surgical History: Reports: None Respiratory Surgical History: Reports: None GI Surgical History: Reports: None Female Surgical History: Reports: None Endocrine Surgical History: Reports: None Neurological Surgical History: Reports: None Musculoskeletal Surgical History: Reports: None Oncologic Surgical History: Reports: None Dermatological Surgical History: Reports: None Social & Family History - Family History Family Medical History: No Pertinent Family History - Caffeine Use Caffeine Use: Reports: Coffee, Energy Drinks, Soda, Tea ED ROS GENERAL - Review of Systems Review Of Systems: Comprehensive ROS is negative, except as noted in HPI. ED EXAM, SKIN/RASH Exam: See Below (See dictation) Course - Vital Signs Last Recorded V/S: Last Vital Signs Temp 98.3 F 09/10/20 17:31 Pulse 71 09/10/20 18:09 Resp 17 09/10/20 17:31 BP 117/61 09/10/20 18:09 Pulse Ox 97 09/10/20 18:09 - Orders/Labs/Meds Labs: Laboratory Tests 09/10/20 09/10/20 09/10/20 Range/Units 17:45 17:45 17:53 WBC 8.03 (4.0-11.0) K/uL RBC 4.56 (4.30-5.90) M/uL Hgb 14.3 (12.0-16.0) g/dL Hct 42.0 (36.0-46.0) % MCV 92.1 (80.0-98.0) fL MCH 31.4 (27.0-32.0) pg MCHC 34.0 (31.0-37.0) g/dL RDW Std Deviation 41.4 (28.0-62.0) fl RDW Coeff of Imani 12 (11.0-15.0) % Plt Count 253 (150-400) K/uL MPV 11.00 (7.40-12.00) fL Neut % (Auto) 50.2 (48.0-80.0) % Lymph % (Auto) 33.9 (16.0-40.0) % [place] % (Auto) 9.3 (0.0-15.0) % Eos % (Auto) 6.0 (0.0-7.0) % Baso % (Auto) 0.6 (0.0-1.5) % Neut # (Auto) 4.0 (1.4-5.7) K/uL Lymph # (Auto) 2.7 H (0.6-2.4) K/uL [place] # (Auto) 0.8 (0.0-0.8) K/uL Eos # (Auto) 0.5 (0.0-0.7) K/uL Baso # (Auto) 0.1 (0.0-0.1) K/uL Nucleated RBC % 0.0 /100WBC Nucleated RBCs # 0 K/uL Sodium 140 (136-145) mmol/L Potassium 4.0 (3.5-5.1) mmol/L Chloride 104 (98-107) mmol/L Carbon Dioxide 26.3 (21.0-32.0) mmol/L BUN 15 (7.0-18.0) mg/dL Creatinine 0.9 (0.6-1.0) mg/dL Est Cr Clr Drug Dosing 109.31 mL/min Estimated GFR (MDRD) > 60.0 ml/min Glucose 87 (74-106) mg/dL Calcium 9.1 (8.5-10.1) mg/dL Total Bilirubin 0.8 (0.2-1.0) mg/dL AST 16 (15-37) IU/L ALT 24 (14-63) IU/L Alkaline Phosphatase 69 (46-116) U/L Total Protein 7.3 (6.4-8.2) g/dL Albumin 4.2 (3.4-5.0) g/dL Globulin 3.1 (2.6-4.0) g/dL Albumin/Globulin Ratio 1.4 (0.9-1.6) Urine Color YELLOW Urine Appearance CLEAR Urine pH 7.5 (5.0-8.0) Ur Specific Forney 1.020 (1.001-1.035) Urine Protein NEGATIVE (NEGATIVE) mg/dL Urine Glucose (UA) NEGATIVE (NEGATIVE) mg/dL Urine Ketones TRACE H (NEGATIVE) mg/dL Urine Occult Blood NEGATIVE (NEGATIVE) Urine Nitrite NEGATIVE (NEGATIVE) Urine Bilirubin NEGATIVE (NEGATIVE) Urine Urobilinogen 1.0 (<2.0) EU/dL Ur Leukocyte Esterase NEGATIVE (NEGATIVE) Urine HCG, Qual (NEGATIVE) Hanane species DNA (NEGATIVE) Gardnerella DNA Probe (NEGATIVE) Trichomonas DNA Probe (NEGATIVE) 09/10/20 09/10/20 Range/Units 17:53 17:53 WBC (4.0-11.0) K/uL RBC (4.30-5.90) M/uL Hgb (12.0-16.0) g/dL Hct (36.0-46.0) % MCV (80.0-98.0) fL MCH (27.0-32.0) pg MCHC (31.0-37.0) g/dL RDW Std Deviation (28.0-62.0) fl RDW Coeff of Imani (11.0-15.0) % Plt Count (150-400) K/uL MPV (7.40-12.00) fL Neut % (Auto) (48.0-80.0) % Lymph % (Auto) (16.0-40.0) % [place] % (Auto) (0.0-15.0) % Eos % (Auto) (0.0-7.0) % Baso % (Auto) (0.0-1.5) % Neut # (Auto) (1.4-5.7) K/uL Lymph # (Auto) (0.6-2.4) K/uL [place] # (Auto) (0.0-0.8) K/uL Eos # (Auto) (0.0-0.7) K/uL Baso # (Auto) (0.0-0.1) K/uL Nucleated RBC % /100WBC Nucleated RBCs # K/uL Sodium (136-145) mmol/L Potassium (3.5-5.1) mmol/L Chloride (98-107) mmol/L Carbon Dioxide (21.0-32.0) mmol/L BUN (7.0-18.0) mg/dL Creatinine (0.6-1.0) mg/dL Est Cr Clr Drug Dosing mL/min Estimated GFR (MDRD) ml/min Glucose (74-106) mg/dL Calcium (8.5-10.1) mg/dL Total Bilirubin (0.2-1.0) mg/dL AST (15-37) IU/L ALT (14-63) IU/L Alkaline Phosphatase (46-116) U/L Total Protein (6.4-8.2) g/dL Albumin (3.4-5.0) g/dL Globulin (2.6-4.0) g/dL Albumin/Globulin Ratio (0.9-1.6) Urine Color Urine Appearance Urine pH (5.0-8.0) Ur Specific Forney (1.001-1.035) Urine Protein (NEGATIVE) mg/dL Urine Glucose (UA) (NEGATIVE) mg/dL Urine Ketones (NEGATIVE) mg/dL Urine Occult Blood (NEGATIVE) Urine Nitrite (NEGATIVE) Urine Bilirubin (NEGATIVE) Urine Urobilinogen (<2.0) EU/dL Ur Leukocyte Esterase (NEGATIVE) Urine HCG, Qual NEGATIVE (NEGATIVE) Hanane species DNA NEGATIVE (NEGATIVE) Gardnerella DNA Probe NEGATIVE (NEGATIVE) Trichomonas DNA Probe NEGATIVE (NEGATIVE) Meds: Medications Discontinued Medications Generic Name Dose Route Start Last Admin Trade Name Freq PRN Reason Stop Dose Admin Diphenhydramine HCl 50 mg 09/10/20 17:32 09/10/20 18:06 Diphenhydramine 50 Mg Cap PO 09/10/20 17:33 50 mg ONETIME ONE Administration Methylprednisolone Sodium Succinate 125 mg 09/10/20 17:32 09/10/20 18:06 Methylprednisolone Sodium Succinate 125 Mg/2 Ml Sdv IM 09/10/20 17:33 125 mg ONETIME ONE Administration Departure - Departure Time of Disposition: 19:33 Disposition: Home, Self-Care 01 Clinical Impression: Urticaria - Discharge Information Prescriptions: hydrOXYzine HCL [Atarax] 25 mg PO Q6H PRN #15 tab PRN Reason: Itching predniSONE [Prednisone] 40 mg PO DAILY 4 Days #8 tablet Instructions: Contact Dermatitis, [id number] Referrals: Sobia Mishra PA [Primary Care Provider] - Forms: ED Department Discharge Additional Instructions: The following information is given to patients seen in the emergency department who are being discharged to home. This information is to outline your options for follow-up care. We provide all patients seen in our emergency department with a follow-up referral. The need for follow-up, as well as the timing and circumstances, are variable d epending upon the specifics of your emergency department visit. If you don't have a primary care physician on staff, we will provide you with a referral. We always advise you to contact your personal physician following an emergency department visit to inform them of the circumstance of the visit and for follow-up with them and/or the need for any referrals to a consulting specialist. The emergency department will also refer you to a specialist when appropriate. This referral assures that you have the opportunity for follow-up care with a specialist. All of these measure are taken in an effort to provide you with optimal care, which includes your follow-up. Under all circumstances we always encourage you to contact your private physician who remains a resource for coordinating your care. When calling for follow-up care, please make the office aware that this follow-up is from your recent emergency room visit. If for any reason you are refused follow-up, please contact the [facility] Emergency Department at and asked to speak to the emergency department charge nurse. [facility] [address] [place] [id number] [facility] [address] [place] [id number] Thank you for choosing the [facility] emergency department in [place] for your medical needs today. It was a pleasure caring for you. Today you were seen in the emergency department for itching. 1. You were evaluated today on an emergent basis. Your lab work is normal. Take the antihistamine and steroids as directed. Alveeno baths may be helpful or calamine lotion. 2. You can alternate Tylenol and ibuprofen as needed for pain and fever management. 3. We encourage you to follow up with your primary care provider and/or recommended specialist in the next few days for re-evaluation and further care/management. 4. If your symptoms should worsen, new symptoms develop or any of the signs and symptoms we discussed should arise please return to the emergency room or call 911 (if needed). Sepsis Event Note (ED) - Focused Exam Vital Signs: Vital Signs Temp Pulse Resp BP Pulse Ox 09/10/20 18:09 71 117/61 97 09/10/20 17:31 98.3 F 79 17 134/70 97
[2020-09-10] MEDS ORDERED: methylPREDNISolone Sodium Succinate 125 MG/2 ML SDV IM ONE (17:32)
[2020-09-10] MEDS ORDERED: diphenhydrAMINE 50 MG Cap PO ONE (17:32)
[2020-09-10 18:14] LABS: BLOOD UREA NITROGEN,BUN 15 mg/dL (7.0-18.0); CARBON DIOXIDE,CO2 26.3 mmol/L (21.0-32.0); CHLORIDE,CL 104 mmol/L (98-107); GLUCOSE RANDOM 87 mg/dL (74-106); SODIUM,NA 140 mmol/L (136-145)
[2020-09-10 19:46] VITALS: BP 121/76; PULSE 79
== END 2020-09-10 19:46 | disposition home or self-care (01) ==
LOC: MW.ED 16:38
DX: L50.9 Urticaria, unspecified (principal)
CPT/HCPCS: 36415; 80053; 81003; 81025; 85025; 87480; 87510; 87660; 96372; 99283; A9270; J2930

== ENCOUNTER 2020-11-06 10:31 | Emergency (ER) | payer BC ==
--- NOTE | 2020-11-06 11:01 | EDM.PDOC ---
ED HPI GENERAL MEDICAL PROBLEM - General Chief Complaint: CLINICAL AIDE Problem Stated Complaint: CRAMPING IN STOMACH Time Seen by Provider: 11/06/20 10:31 Source of Information: Reports: Patient History Limitations: Reports: No Limitations - History of Present Illness INITIAL COMMENTS - FREE TEXT/NARRATIVE: HISTORY AND PHYSICAL: History of present illness: Patient is a 25-year-old female who presents to the ED today with concern of pelvic discomfort that began during intercourse yesterday. Patient states that she was having sexual intercourse with her boyfriend, she has been in a monogamous relationship with for about a month, and states that she began having severe pelvic discomfort during intercourse and had to stop. Patient states that since then, she has been having pelvic/uterine cramping that is worse on the right than the left. Patient denies any vaginal bleeding. Patient states that she does have a Mirena IUD that she has had for 1.5 years. Patient states that since intercourse yesterday, she has had consistent and constant discomfort. Patient states that prior to her new partner, she was checked for STDs and states that this was negative but has not been checked since her new partner 1 month ago. Patient states that currently they are in a monogamous relationship. Patient denies any prior abdominal surgeries and states that she has had an STD in the past. Patient denies any other associated symptoms. Patient denies fever, chills, chest pain, shortness of breath, or cough. Denies headache, neck stiff ness, change in vision, syncope, or near syncope. Denies nausea, vomiting, diarrhea, constipation, or dysuria. Has not noted any blood in urine or stool. Patient has been eating and drinking appropriately. Review of systems: As per history of present illness and below otherwise all systems reviewed and negative. Past medical history: As per history of present illness and as reviewed below otherwise noncontributory. Surgical history: As per history of present illness and as reviewed below otherwise noncontributory. Social history: See social history for further information Family history: As per history of present illness and as reviewed below otherwise noncontributory. Physical exam: General: Patient is alert, oriented, and in no acute distress. Patient laying comfortably on exam table. Vitals stable and reviewed by me. HEENT: Atraumatic, normocephalic, pupils equal and reactive bilaterally, negative for conjunctival pallor or scleral icterus, mucous membranes moist, TMs normal bilaterally, throat clear, neck supple, nontender, trachea midline. No drooling or trismus noted. No meningeal signs. No hot potato voice noted. Lungs: Clear to auscultation, breath sounds equal bilaterally, chest nontender. Heart: S1S2, regular rate and rhythm without overt murmur Abdomen: Soft, nondistended, nontender. Negative for masses or hepatosplenomegaly. Negative for costovertebral tenderness. Pelvis: Stable nontender. Genitourinary: exam performed by PA student Carmelo Mckeon observed and supervised directly by me. External genitalia grossly unremarkable. There is a moderate amount of white vaginal discharge in the vaginal vault. IUD string noted in place. Cervical motion tenderness noted with negative chandelier sign concerning for PID. Pain of the uterus to palpation with pain of the right adnexa. Rectal: Deferred. Skin: Intact, warm, dry. No lesions or rashes noted. Extremities: Atraumatic, negative for cords or calf pain. Neurovascular unremarkable. Neuro: Awake, alert, oriented. Cranial nerves II through XII unremarkable. Cerebellum unremarkable. Motor and sensory unremarkable throughout. Exam nonfocal. Notes: Patient is a 25-year-old female who presents emergency room today secondary to pelvic pain that started last night after intercourse and uterine cramping that has been constant since intercourse last night/worse on the right than the left. Upon arrival to the ED, patient is vitally stable and well-appearing on exam. On exam, patient does note to have a moderate amount of white vaginal discharge in the vaginal vault, IUD string is in place but cervical motion tenderness is noted. Chandelier sign is negative, however, due to patient's discomfort of the cervix, will treat empirically for pelvic inflammatory disease. Will obtain basic lab work as well as transvaginal ultrasound. Lab work today is unremarkable. hCG is negative. Urinalysis is clear for infection. Transvaginal ultrasound shows a 2.8 cm x 1.8 cm x 2.5 cm oval solid- appearing area within the right ovary. 2, 3-month follow-up recommended. IUD present in the endometrial canal. Large amount of free fluid in the cul-de-sac. Due to the large amount of free fluid in the cul-de-sac and RLQ pain, will obtain abdominal pelvic CT with contrast. I did call and speak to the CLINICAL AIDE provider on-call, Dr. Lin, and thoroughly discussed patient's case. She does not feel that this solid ovary mass is concerning for TOA and recommends treating empirically for PID with doxycycline 100 mg twice daily for 14 days and follow-up in the clinic in 4 to 6 weeks for repeat ultrasound. Abdominal pelvic CT shows a normal-appearing appendix. Diffuse colonic fecal retention. Nonspecific pericolonic inflammatory stranding lateral to the mid sigmoid colon down to the cecum with no associated colonic wall thickening. This is nonspecific. Possible complex fluid in the cul-de-sac with a 2.7 cm right ovarian/adnexal cyst. Pelvic ultrasound recommended. IUD present in the endometrial canal. Upon reevaluation of patient, she remains vitally stable and comfortable throughout stay in ED. Strict return precautions thoroughly discussed with patient. Discussed importance for follow-up with an CLINICAL AIDE provider. Voices understanding and is agreeable to plan of care. Denies any further questions or concerns at this time. Diagnostics: CBC, CMP, UA, lipase, Uhcg, TVUS, G&C, Affirm, transvaginal ultrasound Therapeutics: Rocephin Prescription: Doxycycline Impression: Pelvic inflammatory disease Plan: 1. Take medication as prescribed. You can alternate ibuprofen and Tylenol as directed for pain and discomfort. 2. Refrain from sexual intercourse until all labwork from today has returned. 3. Follow-up with an CLINICAL AIDE provider in the next 4 to 6 weeks as discussed. The number has been provided above for you to call and establish an appointment time. 4. Return to the ED as needed and as discussed. Definitive disposition and diagnosis as appropriate pending reevaluation and review of above. abd Pain Score (Numeric/FACES): 8 - Related Data Allergies Allergy/AdvReac Type Severity Reaction Status Date / Time No Known Allergies Allergy Verified 11/06/20 10:47 Home Meds: Home Meds Doxycycline [Vibramycin] 100 mg PO BID 14 Days #28 cap 11/06/20 [Rx] levonorgestreL [Mirena] 1 each IY DAILY 11/06/20 [History] Past Medical History - Past Health History Medical/Surgical History: Denies Medical/Surgical History HEENT History: Reports: Sinusitis Cardiovascular History: Reports: None Respiratory History: Reports: Bronchitis, Recurrent Gastrointestinal History: Reports: None Genitourinary History: Reports: None CLINICAL AIDE History: Reports: Musculoskeletal History: Reports: Other (See Below) Other Musculoskeletal History: metacarpal fx Neurological History: Reports: None Psychiatric History: Reports: Anxiety, Depression, PTSD Endocrine/Metabolic History: Reports: None Hematologic History: Reports: None Immunologic History: Reports: None Oncologic (Cancer) History: Reports: None Dermatologic History: Reports: None - Infectious Disease History Infectious Disease History: Reports: Chicken Pox - Past Surgical History Head Surgeries/Procedures: Reports: None HEENT Surgical History: Reports: None Cardiovascular Surgical History: Reports: None Respiratory Surgical History: Reports: None GI Surgical History: Reports: None Female Surgical History: Reports: None Endocrine Surgical History: Reports: None Neurological Surgical History: Reports: None Musculoskeletal Surgical History: Reports: None Oncologic Surgical History: Reports: None Dermatological Surgical History: Reports: None Social & Family History - Family History Family Medical History: No Pertinent Family History - Caffeine Use Caffeine Use: Reports: None ED ROS GENERAL - Review of Systems Review Of Systems: Comprehensive ROS is negative, except as noted in HPI. ED EXAM, GENERAL - Physical Exam Exam: See Below (see dictation) Course - Vital Signs Last Recorded V/S: Last Vital Signs Temp 97.6 F 11/06/20 10:48 Pulse 80 11/06/20 13:19 Resp 16 11/06/20 13:19 BP 132/73 11/06/20 13:19 Pulse Ox 98 11/06/20 13:19 - Orders/Labs/Meds Orders: Active Orders 24 hr Category Date Time Status CHLAMYDIA AND GONORRHEA BY TMA Stat Lab 11/06/20 11:25 Received Labs: Laboratory Tests 11/06/20 11/06/20 11/06/20 Range/Units 10:43 10:43 11:25 WBC (4.0-11.0) K/uL RBC (4.30-5.90) M/uL Hgb (12.0-16.0) g/dL Hct (36.0-46.0) % MCV (80.0-98.0) fL MCH (27.0-32.0) pg MCHC (31.0-37.0) g/dL RDW Std Deviation (28.0-62.0) fl RDW Coeff of Imani (11.0-15.0) % Plt Count (150-400) K/uL MPV (7.40-12.00) fL Neut % (Auto) (48.0-80.0) % Lymph % (Auto) (16.0-40.0) % [place] % (Auto) (0.0-15.0) % Eos % (Auto) (0.0-7.0) % Baso % (Auto) (0.0-1.5) % Neut # (Auto) (1.4-5.7) K/uL Lymph # (Auto) (0.6-2.4) K/uL [facility] # (Auto) (0.0-0.8) K/uL Eos # (Auto) (0.0-0.7) K/uL Baso # (Auto) (0.0-0.1) K/uL Nucleated RBC % /100WBC Nucleated RBCs # K/uL Sodium (136-145) mmol/L Potassium (3.5-5.1) mmol/L Chloride (98-107) mmol/L Carbon Dioxide (21.0-32.0) mmol/L BUN (7.0-18.0) mg/dL Creatinine (0.6-1.0) mg/dL Est Cr Clr Drug Dosing Estimated GFR (MDRD) ml/min Glucose (74-106) mg/dL Calcium (8.5-10.1) mg/dL Total Bilirubin (0.2-1.0) mg/dL AST (15-37) IU/L ALT (14-63) IU/L Alkaline Phosphatase (46-116) U/L Total Protein (6.4-8.2) g/dL Albumin (3.4-5.0) g/dL Globulin (2.6-4.0) g/dL Albumin/Globulin Ratio (0.9-1.6) Lipase (73-393) U/L Urine Color YELLOW Urine Appearance CLEAR Urine pH 6.0 (5.0-8.0) Ur Specific [place] 1.025 (1.001-1.035) Urine Protein NEGATIVE (NEGATIVE) mg/dL Urine Glucose (UA) NEGATIVE (NEGATIVE) mg/dL Urine Ketones NEGATIVE (NEGATIVE) mg/dL Urine Occult Blood NEGATIVE (NEGATIVE) Urine Nitrite NEGATIVE (NEGATIVE) Urine Bilirubin NEGATIVE (NEGATIVE) Urine Urobilinogen 1.0 (<2.0) EU/dL Ur Leukocyte Esterase NEGATIVE (NEGATIVE) Urine HCG, Qual NEGATIVE (NEGATIVE) Hanane species DNA NEGATIVE (NEGATIVE) Gardnerella DNA Probe NEGATIVE (NEGATIVE) Trichomonas DNA Probe NEGATIVE (NEGATIVE) 11/06/20 11/06/20 Range/Units 12:26 12:26 WBC 7.67 (4.0-11.0) K/uL RBC 4.43 (4.30-5.90) M/uL Hgb 13.9 (12.0-16.0) g/dL Hct 41.6 (36.0-46.0) % MCV 93.9 (80.0-98.0) fL MCH 31.4 (27.0-32.0) pg MCHC 33.4 (31.0-37.0) g/dL RDW Std Deviation 43.3 (28.0-62.0) fl RDW Coeff of Imani 13 (11.0-15.0) % Plt Count 220 (150-400) K/uL MPV 11.20 (7.40-12.00) fL Neut % (Auto) 57.4 (48.0-80.0) % Lymph % (Auto) 24.4 (16.0-40.0) % [place] % (Auto) 10.8 (0.0-15.0) % Eos % (Auto) 7.0 (0.0-7.0) % Baso % (Auto) 0.4 (0.0-1.5) % Neut # (Auto) 4.4 (1.4-5.7) K/uL Lymph # (Auto) 1.9 (0.6-2.4) K/uL [facility] # (Auto) 0.8 (0.0-0.8) K/uL Eos # (Auto) 0.5 (0.0-0.7) K/uL Baso # (Auto) 0.0 (0.0-0.1) K/uL Nucleated RBC % 0.0 /100WBC Nucleated RBCs # 0 K/uL Sodium 139 (136-145) mmol/L Potassium 4.6 (3.5-5.1) mmol/L Chloride 104 (98-107) mmol/L Carbon Dioxide 25.5 (21.0-32.0) mmol/L BUN 12 (7.0-18.0) mg/dL Creatinine 0.8 (0.6-1.0) mg/dL Est Cr Clr Drug Dosing TNP Estimated GFR (MDRD) > 60.0 ml/min Glucose 85 (74-106) mg/dL Calcium 8.7 (8.5-10.1) mg/dL Total Bilirubin 0.3 (0.2-1.0) mg/dL AST 18 (15-37) IU/L ALT 25 (14-63) IU/L Alkaline Phosphatase 77 (46-116) U/L Total Protein 6.5 (6.4-8.2) g/dL Albumin 3.5 (3.4-5.0) g/dL Globulin 3.0 (2.6-4.0) g/dL Albumin/Globulin Ratio 1.2 (0.9-1.6) Lipase 72 L (73-393) U/L Urine Color Urine Appearance Urine pH (5.0-8.0) Ur Specific [place] (1.001-1.035) Urine Protein (NEGATIVE) mg/dL Urine Glucose (UA) (NEGATIVE) mg/dL Urine Ketones (NEGATIVE) mg/dL Urine Occult Blood (NEGATIVE) Urine Nitrite (NEGATIVE) Urine Bilirubin (NEGATIVE) Urine Urobilinogen (<2.0) EU/dL Ur Leukocyte Esterase (NEGATIVE) Urine HCG, Qual (NEGATIVE) Hanane species DNA (NEGATIVE) Gardnerella DNA Probe (NEGATIVE) Trichomonas DNA Probe (NEGATIVE) Meds: Medications Discontinued Medications Generic Name Dose Route Start Last Admin Trade Name Freq PRN Reason Stop Dose Admin Ceftriaxone Sodium 1 gm 11/06/20 11:29 11/06/20 13:15 Ceftriaxone 1 Gm Vial IM 11/06/20 11:30 1 gm ONETIME ONE Administration Iopamidol 100 ml 11/06/20 14:25 11/06/20 14:26 Iopamidol 755 Mg/Ml 500 Ml Multipack Bottle IVPUSH 11/06/20 14:26 100 ml ONETIME STA Administration Lidocaine HCl 2 ml 11/06/20 13:05 11/06/20 13:15 Lidocaine 1% Pf 2 Ml Sdv INJECT 11/06/20 13:06 2 ml ONETIME ONE Administration Departure - Departure Time of Disposition: 15:17 Disposition: Home, Self-Care 01 Clinical Impression: Pelvic inflammatory disease - Discharge Information Prescriptions: Doxycycline [Vibramycin] 100 mg PO BID 14 Days #28 cap Referrals: Sobia Mishra PA [Primary Care Provider] - Forms: ED Department Discharge Additional Instructions: The following information is given to patients seen in the emergency department who are being discharged to home. This information is to outline your options for follow-up care. We provide all patients seen in our emergency department with a follow-up referral. The need for follow-up, as well as the timing and circumstances, are variable depending upon the specifics of your emergency department visit. If you don't have a primary care physician on staff, we will provide you with a referral. We always advise you to contact your personal physician following an emergency department visit to inform them of the circumstance of the visit and for follow-up with them and/or the need for any referrals to a consulting specialist. The emergency department will also refer you to a specialist when appropriate. This referral assures that you have the opportunity for follow-up care with a specialist. All of these measure are taken in an effort to provide you with optimal care, which includes your follow-up. Under all circumstances we always encourage you to contact your private physician who remains a resource for coordinating your care. When calling for follow-up care, please make the office aware that this follow-up is from your recent emergency room visit. If for any reason you are refused follow-up, please contact the [facility] Emergency Department at and asked to speak to the emergency department charge nurse. [facility] [address] [place] [id number] [facility] [address] [place] [id number] 1. Take medication as prescribed. You can alternate ibuprofen and Tylenol as directed for pain and discomfort. 2. Refrain from sexual intercourse until all labwork from today has returned. 3. Follow-up with an CLINICAL AIDE provider as discussed. The number has been provided above for you to call and establish an appointment time. 4. Return to the ED as needed and as discussed. Sepsis Event Note (ED) - Evaluation Sepsis Screening Result: No Definite Risk - Focused Exam Vital Signs: Vital Signs Temp Pulse Resp BP Pulse Ox 11/06/20 13:19 80 16 132/73 98 11/06/20 10:48 97.6 F 98 18 135/59 L 99 - My Orders Last 24 Hours: My Active Orders 11/06/20 11:25 CHLAMYDIA AND GONORRHEA BY TMA Stat - Assessment/Plan Last 24 Hours: My Active Orders 11/06/20 11:25 CHLAMYDIA AND GONORRHEA BY TMA Stat
[2020-11-06] MEDS ORDERED: cefTRIAXone 1 GM Vial IM ONE (11:29)
[2020-11-06 12:58] LABS: BLOOD UREA NITROGEN,BUN 12 mg/dL (7.0-18.0); CARBON DIOXIDE,CO2 25.5 mmol/L (21.0-32.0); CHLORIDE,CL 104 mmol/L (98-107); GLUCOSE RANDOM 85 mg/dL (74-106); LIPASE 72 U/L (73-393); POTASSIUM,K 4.6 mmol/L (3.5-5.1); SODIUM,NA 139 mmol/L (136-145)
--- NOTE | 2020-11-06 13:01 | US ---
INDICATION: PID, evaluate for TOA TECHNIQUE: Ultrasound pelvis transvaginal only COMPARISON: None FINDINGS: Uterus: 9.4 centimeter x 6.1 centimeters x 4.7 centimeter normal echotexture of the myometrium. No masses. Endometrium: The endometrium measures 6 mm in thickness. No sign of endometrial mass or fluid. IUD present in the endometrial canal appeared Right ovary: 5.3 centimeter x 2.5 centimeter x 4.8 centimeter. 2.8 centimeter x 1.8 centimeter x 2.5 centimeter oval solid appearing ovarian lesion. Normal arterial and venous blood flow. Left ovary: 2.9 centimeter x 1.4 centimeter x 3.4 centimeter. No ovarian or adnexal masses. Normal arterial and venous blood flow. Cul-de-sac: Large amount of free fluid. IMPRESSION: 2.8 centimeter x 1.8 centimeter x 2.5 centimeter oval solid appearing area within the right ovary. Two 3 month follow-up recommended. IUD present in the endometrial canal. Large amount of free fluid in the cul sac. Dictated by Mikhail Rubi MD @ 11/06/2020 12:59:[address] Mikhail Rubi @ Nov 06 2020 12:59PM
[2020-11-06] MEDS ORDERED: Lidocaine 1% PF 2 ML SDV INJECT ONE (13:05)
[2020-11-06 13:19] VITALS: BP 132/73; PULSE 80
[2020-11-06] MEDS ORDERED: Iopamidol 755 MG/ML 500 ML Multipack Bottle IVPUSH STA (14:25)
--- NOTE | 2020-11-06 15:16 | CT ---
INDICATION: Right lower quadrant pain TECHNIQUE: CT abdomen and pelvis acquired with IV contrast. COMPARISON: None FINDINGS: Lower chest: Unremarkable. Liver: Unremarkable. Spleen: Unremarkable. Pancreas: Unremarkable. Gallbladder and bile ducts: Unremarkable. Kidneys: Unremarkable. Adrenal glands: Unremarkable. GI tract: Diffuse colonic fecal retention. Nonspecific pericolonic inflammatory stranding lateral to the midsigmoid colon down to the cecum. Appendix is normal. Vascular structures: Unremarkable. Lymph nodes: Unremarkable. Miscellaneous: Unremarkable. No free air or significant free fluid. Pelvic Organs IUD present in the endometrial canal. 2.7 centimeter involuting right ovarian/adnexal cyst. Possible complex fluid in the cul sac. Bones: Unremarkable for age. IMPRESSION: Normal-appearing appendix. Diffuse colonic fecal retention. Nonspecific pericolonic inflammatory stranding lateral to the mid sigmoid colon down to the cecum with no associated colonic wall thickening. Findings are nonspecific. Possible complex fluid in the cul sac. Involuting 2.7 centimeters right ovarian/adnexal cyst. Pelvic ultrasound may be helpful to further characterize. DD present in the endometrial canal. Please note that all CT scans at this facility use dose modulation, iterative reconstruction, and/or weight-based dosing when appropriate to reduce radiation dose to as low as reasonably achievable. Dictated by Mikhail Rubi MD @ 11/06/2020 3:15:[address] Mikhail Rubi @ Nov 06 2020 3:15PM
[2020-11-07 17:03] LABS: C.TRACHOMATIS BY TMA Negative (Negative); N.GONORRHOEAE BY TMA Negative (Negative)
== END 2020-11-06 15:33 | disposition home or self-care (01) ==
LOC: MW.ED 10:31
DX: N73.9 Female pelvic inflammatory disease, unspecified (principal)
CPT/HCPCS: 36415; 74177; 76830; 80053; 81003; 81025; 83690; 85025; 87480; 87491; 87510; 87591; 87660; 96372; 99284; J0696; Q9967

== ENCOUNTER 2021-03-14 01:19 | Emergency (ER) | payer BC ==
[2021-03-14 01:41] VITALS: BP 124/81; PULSE 88
[2021-03-14] MEDS ORDERED: Diphtheria,Pertussis(Acell),Tetanus Vaccine 0.5 ML Syringe IM ONE (01:50)
[2021-03-14] MEDS ORDERED: Ketorolac 15 MG/ML SDV ONE (02:35)
[2021-03-14] MEDS ORDERED: Ketorolac 15 MG/ML SDV IM ONE (02:37)
[2021-03-14] MEDS ORDERED: Lidocaine 1% 10 ML MDV INJECT ONE (02:38)
[2021-03-14] MEDS ORDERED: Nicotine 21 MG/24 Hr Patch ONE (02:44)
[2021-03-14] MEDS ORDERED: Nicotine 21 MG/24 Hr Patch TRDERM ONE (02:48)
[2021-03-14] MEDS ORDERED: Acetaminophen/HYDROcodone 325-5 MG Tab PO ONE (03:03)
--- NOTE | 2021-03-14 03:17 | EDM.PDOC ---
ED HPI GENERAL MEDICAL PROBLEM - General Chief Complaint: Upper Extremity Injury/Pain Stated Complaint: RIGHT WRIST POSS BROKEN Time Seen by Provider: 03/14/21 01:29 - History of Present Illness INITIAL COMMENTS - FREE TEXT/NARRATIVE: CHIEF COMPLAINT(S): Right wrist injury HISTORY OF PRESENT ILLNESS: This is a 26-year-old with woman without any significant past medical history who comes to the emergency department with a chief complaint of right wrist injury. The patient states that she was drinking and was intoxicated and was kicking some tackle boxes when she tripped and fell down approximately 5 stairs causing herself to hit her chin without any loss of consciousness. She states that she is mainly experiencing right wrist pain. She denies any numbness, tingling, or weakness. She currently rates her pain a 0 out of 10 but it was increased prior to arrival. She denies any chest pain, shortness of breath, abdominal pain, nausea or vomiting. She states that she does not recall when her last tetanus shot was. REVIEW OF SYSTEMS: Constitutional: Denies fever, chills. Eyes: Denies eye pain Ears, Nose, Mouth, & Throat: Denies earache Cardiovascular: Denies chest pain Respiratory: Denies shortness of breath Gastrointestinal: Denies Nausea, vomiting, diarrhea, hematochezia. Genitourinary: Denies hematuria Skin:Denies a rash MSK: Positive for right wrist pain Neurological: Positive for head injury without loss of consciousness. Denies blurred vision Psychiatric: Denies depression PAST MEDICAL HISTORY: As per history of present illness and as reviewed below otherwise noncontributory. SURGICAL HISTORY: As per history of present illness and as reviewed below otherwise noncontributory. SOCIAL HISTORY: As per history of present illness and as reviewed below otherwise noncontributory. FAMILY HISTORY: As per history of present illness and as reviewed below otherwise noncontributory. EXAMINATION OF ORGAN SYSTEMS/BODY AREAS: Constitutional: Blood pressure 124/81, heart rate 88, respiratory 16 with an oxygen saturation 98% on room air. Temperature 36.1 General: Intoxicated appearing woman who is laughing but it appears to be in no acute distress Psychiatric: Intoxicated but cooperative. Eyes: No scleral icterus or conjunctival erythema extra ocular movements intact without any signs of entrapment. ENMT: Moist mucous membranes. No pharyngeal erythema no blood in the oropharynx. No missing or chipped teeth. No stridor, drooling, trismus. Cardiovascular: Regular, rate, and rhythm. No gallops, murmurs, or rubs. Bilateral upper extremity pulses symmetric and intact. No peripheral edema. No JVD. Respiratory: Lungs clear to auscultation bilaterally. No wheezes, rales, or rhonchi. Gastrointestinal: Soft, non-tender, non-distended. Normoactive bowel sounds Genitourinary: No suprapubic tenderness Musculoskeletal: Normal range of motion. No cervical, thoracic, or lumbar midline spinal tenderness. There is a significant deformity to the patient's right wrist. Capillary refill of the distal right upper extremity is less than 2 seconds. Patient has full dexterity of all her digits on her right hand. Skin: There is a 0.5 cm punctate laceration to the patient's chin area without any active bleeding. There is also some right eyebrow ecchymosis and swelling. Neurological: Alert, GCS 15 distal sensation is intact MEDICAL DECISION MAKING AND COURSE IN THE ED WITH INTERPRETATION/REVIEW OF DIAGNOSTIC STUDIES: This is a 26-year-old woman who is intoxicated who comes to the emergency department with acute closed head injury without any loss of consciousness and a significantly deformed right wrist with a punctate laceration to her right chin. At this time we will update the patient's tetanus shot. The patient states that her pain is currently under control. Will obtain a right wrist and right hand x-ray. We will evaluate after the x-ray is completed. The patient stated that she had some increased pain therefore we provided the patient with Toradol IM for pain relief. I did discuss a hematoma block at this time. She was amenable to this plan. Hematoma Block Procedure Note Indication: Anesthesia for right acute comminuted distal radius fracture Consent: Verbal Procedure: Patients right wrist was prepped in a sterile fashion with betadine. The side of the fracture was identified by landmark palpation. 18 gauge needle was inserted directly over the fracture and advanced. Blood was aspirated. 10 cc of 1% lidocaine was injected. Needle was removed and pressure was provided with gauze. Sterile dressing was applied. Complications: None Noted The patient stated that she would like to go smoke a cigarette therefore I did offer the patient nicotine patch. We did apply a nicotine patch to the patient. Prior to x-ray read there is a significant fracture of the distal radius. At this time we contacted anesthesia and we will be contacted back if they are able to do this. As the nurse went to ask what time the patient last ate the patient stated that she needed a cigarette and we did discuss with her at this time that we would need to hold off. front desk admin notified us that the patient bolted out of the emergency department. RN did contact patient at the numbers provided. RN spoke with sister over the phone who is with the patient when she left the emergency department. She stated that the patient asked like this all the time and will try to convince her to come back to the emergency department. The radiological images were viewed by myself along with reading the report from the radiologist. Right wrist x-ray reveals an acutely comminuted transverse intra-articular fracture of the distal radius with approximately 45 degrees of dorsal angulation of the major distal fracture fragment. No other obvious fractures. Right hand x-ray does not reveal any fracture or dislocation of the hand. Evidence of the fracture of the wrist is evident on this x-ray. DISPOSITION: The patient eloped CONDITION: Serious PROCEDURES: Hematoma Block FINAL IMPRESSION(S)/DIAGNOSES: 1. Acute comminuted displaced distal radius fracture Gordon Coello M.D. Right Wrist Pain Score (Numeric/FACES): 1 - Related Data Allergies Allergy/AdvReac Type Severity Reaction Status Date / Time No Known Allergies Allergy Verified 03/14/21 01:28 Home Meds: Home Meds Doxycycline [Vibramycin] 100 mg PO BID 14 Days #28 cap 11/06/20 [Rx] levonorgestreL [Mirena] 1 each IY DAILY 11/06/20 [History] Past Medical History - Past Health History Medical/Surgical History: Denies Medical/Surgical History HEENT History: Reports: Sinusitis Cardiovascular History: Reports: None Respiratory History: Reports: Bronchitis, Recurrent Gastrointestinal History: Reports: None Genitourinary History: Reports: None [employer] History: Reports: Musculoskeletal History: Reports: Other (See Below) Other Musculoskeletal History: metacarpal fx Neurological History: Reports: None Psychiatric History: Reports: Anxiety, Depression, PTSD Endocrine/Metabolic History: Reports: None Hematologic History: Reports: None Immunologic History: Reports: None Oncologic (Cancer) History: Reports: None Dermatologic History: Reports: None - Infectious Disease History Infectious Disease History: Reports: Chicken Pox - Past Surgical History Head Surgeries/Procedures: Reports: None HEENT Surgical History: Reports: None Cardiovascular Surgical History: Reports: None Respiratory Surgical History: Reports: None GI Surgical History: Reports: None Female Surgical History: Reports: None Endocrine Surgical History: Reports: None Neurological Surgical History: Reports: None Musculoskeletal Surgical History: Reports: None Oncologic Surgical History: Reports: None Dermatological Surgical History: Reports: None Social & Family History - Family History Family Medical History: No Pertinent Family History - Caffeine Use Caffeine Use: Reports: None - Recreational Drug Use Recreational Drug Use: No Review of Systems - Review of Systems Review Of Systems: See Below ED EXAM, GENERAL - Physical Exam Exam: See Below Course - Vital Signs Last Recorded V/S: Last Vital Signs Temp 36.1 C 03/14/21 01:28 Pulse 88 03/14/21 01:28 Resp 16 03/14/21 01:28 BP 124/81 03/14/21 01:28 Pulse Ox 98 03/14/21 01:28 - Orders/Labs/Meds Meds: Medications Discontinued Medications Generic Name Dose Route Start Last Admin Trade Name Emma PRN Reason Stop Dose Admin Hydrocodone Bitart/Acetaminophen 1 tab 03/14/21 03:03 03/14/21 03:29 Acetaminophen/Hydrocodone 325-5 Mg Tab PO 03/14/21 03:04 Not Given ONETIME ONE Diphtheria/Tetanus/Acell Pertussis 0.5 ml 03/14/21 01:50 03/14/21 02:04 Diphtheria,Pertussis(Acell),Tetanus Vaccine 0.5 Ml Syringe IM 03/14/21 01:51 0.5 ml .ONCE ONE Administration Ketorolac Tromethamine 15 mg 03/14/21 02:37 03/14/21 02:39 Ketorolac 15 Mg/Ml Sdv IM 03/14/21 02:38 15 mg ONETIME ONE Administration Ketorolac Tromethamine Confirm 03/14/21 02:35 03/14/21 02:38 Ketorolac 15 Mg/Ml Sdv Administered 03/14/21 02:36 Not Given Dose 15 mg .ROUTE .STK-MED ONE Lidocaine HCl 10 ml 03/14/21 02:38 03/14/21 02:42 Lidocaine 1% 10 Ml Mdv INJECT 03/14/21 02:39 Not Given ONETIME ONE Lidocaine HCl 10 ml 03/14/21 02:41 03/14/21 02:50 Lidocaine 1% 5 Ml Sdv INJECT 03/14/21 02:42 10 ml ONETIME ONE Administration Lidocaine HCl Confirm 03/14/21 02:40 03/14/21 02:49 Lidocaine 1% 5 Ml Sdv Administered 03/14/21 02:41 Not Given Dose 10 ml .ROUTE .STK-MED ONE Nicotine Confirm 03/14/21 02:44 03/14/21 02:49 Nicotine 21 Mg/24 Hr Patch Administered 03/14/21 02:45 Not Given Dose 21 mg .ROUTE .STK-MED ONE Nicotine 21 mg 03/14/21 02:48 03/14/21 02:51 Nicotine 21 Mg/24 Hr Patch TRDERM 03/14/21 02:49 21 mg ONETIME ONE Administration Departure - Departure Time of Disposition: 03:10 Disposition: Against Medical Advice 07 Condition: Serious Clinical Impression: Fracture of radius - Discharge Information Referrals: PCP,None [Primary Care Provider] - Forms: ED Department Discharge Sepsis Event Note (ED) - Focused Exam Vital Signs: Vital Signs Temp Pulse Resp BP Pulse Ox 03/14/21 01:28 36.1 C 88 16 124/81 98
--- NOTE | 2021-03-14 03:18 | CR ---
INDICATION: Pain after injury. COMPARISON: None available. TECHNIQUE: AP, lateral, and oblique views of the right wrist are obtained for a total of three views. FINDINGS: There is an acute, comminuted, transverse, intra-articular fracture of the distal radius with approximately 45 degrees dorsal angulation of the major distal fracture fragment. There is no sign of additional acute fracture or dislocation. Specifically, I do not see a definite fracture of the distal ulna. The bones of the carpus are in anatomic alignment with the major distal radial fracture fragment. There is deformity of the distal shaft of the 5th metacarpal from an old, healed fracture. No degenerative disease is seen. There is mild diffuse soft tissue swelling around the distal radial fracture. IMPRESSION: Acute, comminuted, intra-articular, moderately angulated fracture of the distal radius. Dictated by Robin Batista MD @ 03/14/2021 3:16:14 AM (Electronically Signed)
--- NOTE | 2021-03-14 03:20 | CR ---
INDICATION: Hand pain after injury. COMPARISON: Wrist examination from today. TECHNIQUE: The right hand is examined with PA, lateral, and oblique views. FINDINGS: The acute, comminuted, moderately angulated, intra-articular fracture of the distal radius is described in the accompanying wrist examination. There is no sign of additional acute fracture or dislocation. There is deformity of the distal shaft of the 5th metacarpal from an old, healed fracture. The soft tissues are normal in appearance without sign of radio-opaque foreign body. No degenerative disease is seen. IMPRESSION: Acute, comminuted, oblique, moderately angulated, intra-articular fracture of the distal radius. No sign of any acute fracture of the hand itself. Deformity of the distal shaft of the 5th metacarpal from an old, healed fracture. Dictated by Robin Batista MD @ 03/14/2021 3:18:31 AM (Electronically Signed)
== END 2021-03-14 03:10 | disposition left against medical advice (07) ==
LOC: MW.ED 01:19
DX: S52.571A Other intraarticular fracture of lower end of right radius, initial encounter for closed fracture (principal); Z23 Encounter for immunization; W10.9XXA Fall (on) (from) unspecified stairs and steps, initial encounter
CPT/HCPCS: 64450; 73110; 73130; 90471; 90715; 96372; 99283; A9270; J1885

== ENCOUNTER 2021-04-20 17:02 | Emergency (ER) | payer BC | END 2021-04-20 17:42 | disposition home or self-care (01) | LOC: MW.ED 17:02 | DX: R05.9 Cough, unspecified (principal); Z53.21 Procedure and treatment not carried out due to patient leaving prior to being seen by health care provider ==

== ENCOUNTER 2022-06-12 12:27 | Emergency (ER) | payer SELFPAY ==
[2022-06-12 14:59] LABS: C. TRACHOMATIS BY PCR NOT DETECTED; N. GONORRHOEAE BY PCR NOT DETECTED
[2022-06-12 16:06] VITALS: BP 125/65; PULSE 81
== END 2022-06-12 16:05 | disposition home or self-care (01) ==
LOC: MW.ED 12:27
DX: N76.0 Acute vaginitis (principal); N83.202 Unspecified ovarian cyst, left side; F17.210 Nicotine dependence, cigarettes, uncomplicated
CPT/HCPCS: 76830; 76830-26; 81001; 81025; 87480; 87491; 87510; 87591; 87660; 99283; 99284